=== PATIENT | male | born 1960 | race Caucasian/White ===

== ENCOUNTER 2025-01-03 15:29 | Inpatient (IN) | payer MEDICARE, OTHER ==
[~2025-01-03] VITALS: Ht 185.4 cm; Wt 92.5 kg
[2025-01-03 17:13] LABS: PLATELET COUNT (AUTO) 150 K/uL (150-450); RED BLOOD CELL COUNT(AUTO) 3.69 MIL/uL (4.5-6.0); RED CELL DISTRIBUTION WIDTH 15.0 % (11.5-15.0); WHITE BLOOD COUNT (AUTO) 5.9 K/uL (4.3-11.0)
[2025-01-03 17:24] LABS: CALCIUM, SERUM 8.2 mg/dL (8.5-10.1); CREATININE 1.2 mg/dL (0.6-1.3); SODIUM SERUM 145.0 mmol/L (136-145); UREA NITROGEN, BLOOD 12.0 mg/dL (7-18)
[2025-01-03 17:28] LABS: APPEARANCE,URINE CLEAR (CLEAR); BLOOD, URINE TRACE-INTA Ery/uL (NEGATIVE); LEUKOCYTE ESTERASE ,URINE NEGATIVE (NEGATIVE); NITRITE, URINE NEGATIVE (NEGATIVE); UGLUCOSE NEGATIVE (NEGATIVE)
[2025-01-03 17:30] LABS: ASPARTATE AMINOTRANSFERASE 19.0 U/L (15-37); TOTAL PROTEIN, SERUM 6.0 g/dL (6.4-8.2)
[2025-01-03 17:42] LABS: ADD URINE CULTURE NO
[2025-01-03] MEDS ORDERED: MAG HYDROX/AL HYDROX/SIMETH 30 ML UDC PO PRN (20:00)
[2025-01-03] MEDS ORDERED: MAGNESIUM HYDROXIDE 30 ML UDC PO PRN (20:00)
[2025-01-03] MEDS ORDERED: Z GUARD REMEDY 4 OZ OINT TP PRN (20:00)
[2025-01-03] MEDS ORDERED: ONDANSETRON HCL/PF 4 MG/2 ML VIAL IVP PRN (20:00)
[2025-01-03 20:30] VITALS: BP 118/68; TEMP 97.9; O2SAT 100
[2025-01-03] MEDS: TEMAZEPAM 15 MG CAPSULE PO PRN (23:20)
[2025-01-04] VITALS (8 sets, daily range): BP systolic 110–136; BP diastolic 65–80; TEMP 98.6–99; O2SAT 96–100
[2025-01-04 06:46] LABS: PLATELET COUNT (AUTO) 146 K/uL (150-450); RED BLOOD CELL COUNT(AUTO) 3.72 MIL/uL (4.5-6.0); RED CELL DISTRIBUTION WIDTH 14.7 % (11.5-15.0); WHITE BLOOD COUNT (AUTO) 5.6 K/uL (4.3-11.0)
[2025-01-04 07:18] LABS: CALCIUM, SERUM 8.4 mg/dL (8.5-10.1); CREATININE 1.2 mg/dL (0.6-1.3); PHOSPHORUS 3.7 mg/dL (2.5-4.9); SODIUM SERUM 142.0 mmol/L (136-145); UREA NITROGEN, BLOOD 15.0 mg/dL (7-18)
[2025-01-04] MEDS: PANTOPRAZOLE 40 MG TABLET.DR PO SCH (07:40)
[2025-01-04] MEDS: HYDROCODONE/APAP 5/325MG TABLET PO PRN (10:29)
[2025-01-04] MEDS: MAGNESIUM OXIDE 400 MG TABLET PO ONE (10:50)
[2025-01-04] MEDS ORDERED: hydrALAZINE HCL IV 20 MG VIAL IV PRN (11:00)
[2025-01-04] MEDS: MUPIROCIN OINT 2% 22 GM TUBE TP SCH (13:33)
[2025-01-05] MEDS ORDERED: DEXTROSE 50%-WATER 50 ML DISP.SYRIN IV PRN (00:30)
[2025-01-05] MEDS: INSULIN REGULAR, HUMAN 100 UNIT/ML 3 ML VIAL SQ PRN (06:37)
[2025-01-05 07:00] VITALS: BP 139/73; TEMP 98.6; O2SAT 96
[2025-01-05 07:34] LABS: APPEARANCE,URINE CLEAR (CLEAR); BLOOD, URINE TRACE-INTA Ery/uL (NEGATIVE); LEUKOCYTE ESTERASE ,URINE NEGATIVE (NEGATIVE); NITRITE, URINE NEGATIVE (NEGATIVE); UGLUCOSE NEGATIVE (NEGATIVE)
[2025-01-05 07:36] LABS: ADD URINE CULTURE NO; SQUAMOUS EPITHELIAL CELL,UR None Seen /HPF (None Seen)
[2025-01-05] MEDS: BLOOD SUGAR DIAGNOSTIC 1 EACH STRIP IN SCH (07:38)
[2025-01-05] MEDS ORDERED: ATOR40TA PO (10:58)
[2025-01-05] MEDS ORDERED: METF-881 PO (10:58)
[2025-01-05 12:25] LABS: CALCIUM, SERUM 8.9 mg/dL (8.5-10.1); CREATININE 1.1 mg/dL (0.6-1.3); SODIUM SERUM 143.0 mmol/L (136-145); UREA NITROGEN, BLOOD 13.0 mg/dL (7-18)
[2025-01-05] MEDS: ACETAMINOPHEN 325 MG TABLET PO PRN (12:27)
[2025-01-05 16:00] VITALS: BP 139/73; TEMP 97.6; O2SAT 96
[2025-01-05 19:39] VITALS: BP 105/76; TEMP 98.6; O2SAT 98
[2025-01-05 20:00] VITALS: BP 105/76; TEMP 98.6; O2SAT 98
[2025-01-05] MEDS ORDERED: OLANZAPINE ZYDIS 5 MG TAB.RAPDIS PO SCH (20:30)
[2025-01-05 23:06] LABS: CHLAMYDIA TRACHOMATIS NAA Negative (Negative); NEISSERIA GONORRHOEAE NAA Negative (Negative)
[2025-01-06 07:38] VITALS: BP 115/76; TEMP 97.6; O2SAT 100
[2025-01-06 08:00] VITALS: BP 115/76; TEMP 97.6; O2SAT 100
[2025-01-06] MEDS: OLANZAPINE 2.5 MG TABLET PO SCH (10:32)
[2025-01-06] MEDS ORDERED: OLAN2.5T3 PO ×3 (11:49→12:13)
[2025-01-06] MEDS: MORPHINE SULFATE INJ 2 MG/ML DISP.SYRIN IV PRN (12:24)
[2025-01-06 16:00] VITALS: BP 109/67; TEMP 98.1; O2SAT 97
[2025-01-06 20:34] VITALS: BP 109/72; TEMP 98.4; O2SAT 100
[2025-01-07 00:43] VITALS: BP 102/54; TEMP 97.2; O2SAT 98
[2025-01-07 04:45] VITALS: BP_SYST 102; BP_SYST 114; BP_SYST 120; BP_DIAS 55; BP_DIAS 82; BP_DIAS 83; TEMP 97.7; O2SAT 98
[2025-01-07 04:46] VITALS: BP 90/76
[2025-01-07 08:00] VITALS: BP 121/83; TEMP 98.1
[2025-01-07] MEDS: NEOMY SULF/BACITRAC ZN/POLY 15 GM TUBE TP SCH (08:18)
[2025-01-07 16:00] VITALS: BP 120/87; TEMP 98.2; O2SAT 99
== END 2025-01-07 19:44 | DRG 421 ==
LOC: ER 15:40 → MED 19:50
PROVIDERS: ADMIT Nurse Practitioner Acute Care; ATTEND Internal Medicine
DX: R62.7 Adult failure to thrive (principal); D63.8 Anemia in other chronic diseases classified elsewhere; F03.90 Unspecified dementia, unspecified severity, without behavioral disturbance, psychotic disturbance, mood disturbance, and anxiety; E11.621 Type 2 diabetes mellitus with foot ulcer; E11.9 Type 2 diabetes mellitus without complications; I10 Essential (primary) hypertension; F17.210 Nicotine dependence, cigarettes, uncomplicated; L97.519 Non-pressure chronic ulcer of other part of right foot with unspecified severity; M20.11 Hallux valgus (acquired), right foot; M20.12 Hallux valgus (acquired), left foot; R53.1 Weakness; Z68.26 Body mass index [BMI] 26.0-26.9, adult; L98.8 Other specified disorders of the skin and subcutaneous tissue; S61.304A Unspecified open wound of right ring finger with damage to nail, initial encounter; X58.XXXA Exposure to other specified factors, initial encounter; Y93.9 Activity, unspecified; Y92.89 Other specified places as the place of occurrence of the external cause; F29 Unspecified psychosis not due to a substance or known physiological condition; F39 Unspecified mood [affective] disorder; G25.0 Essential tremor; F03.93 Unspecified dementia, unspecified severity, with mood disturbance
CPT/HCPCS: 36415; 70450-TC; 76870-TC; 80048-TC; 80053-TC; 81001; 82962-TC; 83735-TC; 84100-TC; 84484-TC; 85025-TC; 87081-TC; 87491; 87591; 97110-TC; 97116-TC; 97530-TC; 97535-TC; G0378; J1815; J2270